=== PATIENT | male | born 1980 | race Two or more races ===

== ENCOUNTER 2017-06-12 20:18 | Emergency (ER) | END 2017-06-12 21:40 | disposition home or self-care (01) ==

== ENCOUNTER 2017-07-26 19:13 | Inpatient (IN) | END 2017-08-03 20:30 | disposition home health service (06) | DRG 551 ==

== ENCOUNTER 2017-10-01 11:18 | Emergency (ER) | END 2017-10-01 16:42 | disposition left against medical advice (07) ==

== ENCOUNTER 2017-10-04 03:38 | Emergency (ER) | END 2017-10-04 23:10 | disposition left against medical advice (07) ==